=== PATIENT | female | born 1950 | race Caucasian/White ===

== ENCOUNTER 2017-07-08 08:59 | Inpatient (IN) | payer OTHER, MEDICARE ==
[~2017-07-08] VITALS: Ht 170.2 cm; Wt 81.6 kg
[~2017-07-08 08:59] MED LIST: ASPIR 8181 M1 PO; BENTYL20 MG PO; BUSPAR15 MG PO; CIPRO500 MG PO; FISH OIL 1,2001 EAC4 PO; FLAGYL500 MG PO; FLEXERIL10 MG PO; IBUPROFEN200 M1 PO; INDOCIN50 MG PO; KLONOPIN1 MG PO; KLONOPIN2 MG PO; LAMICTAL200 MG PO; LAMOTRIGINE200 MG PO; MOTRIN800 MG PO; MULTIPLE VITAM1 EACH PO; NAPROXEN500 MG PO; NORCO 5/3251 TABLET PO; PREDNISONE10 MG PO; PREDNISONE20 MG PO; REFRESH TEARS15 ML BOTH EYES; SEROQUEL100 MG PO; TOLTERODINE TART4 MG PO; TYLENOL WITH C1 EACH PO; ULTRAM50 MG PO; VITAMIN A10000 UNIT PO; VITAMIN D-32000 UNI1 PO; VITAMIN D2000 UNIT PO; WELLBUTRIN XL150 MG PO; ZOCOR40 MG PO
[2017-07-08 10:04] LABS: MCHC 32.5 G/DL (30.0-36.0); MCV 95.2 FL (83-99); MEAN PLAT.VOLUME 9.8 uM^3 (9.5-12.4); PLATELET COUNT 168 K/uL (156-360); RBC DIS.WIDTH-CV 11.5 % (11.8-14.6); RBC DIS.WIDTH-SD 39.8 % (39-53); RED BLOOD COUNT 3.78 M/uL (3.80-5.20)
[2017-07-08 10:14] LABS: CHLORIDE 112 mEq/L (99-109); SODIUM 143 mEq/L (136-147)
[2017-07-08 10:16] LABS: GLUCOSE 96 mg/dL (70-99)
[2017-07-08 10:18] LABS: ANION GAP 4 MEQ/L (2-14); TOTAL BILIRUBIN 0.4 mg/dL (0.0-1.0)
[2017-07-08 10:20] LABS: ALKALINE PHOSPHATASE 102 IU/L (3-129); GFR ESTIMATE (CALCULATED) > 59 mL/min/
[2017-07-08 10:21] LABS: UREA NITROGEN (BUN) 11 mg/dL (9-23)
[2017-07-08 10:24] LABS: LIPASE 17 U/L (1.0-51.0)
[2017-07-08 11:26] LABS: ADD MIUA? YES; BILIRUBIN NEGATIVE; BLOOD NEGATIVE; COLOR YELLOW ((YELLOW)); GLUCOSE (STRIP) NEGATIVE; KETONES NEGATIVE; LEUKOCYTES TRACE; NITRITE NEGATIVE; PROTEIN (STRIP) NEGATIVE; SPECIFIC GRAVITY 1.009 (1.000-1.030); UROBILINOGEN 0.2 MG/DL (0.2-1.0)
[2017-07-08 11:29] LABS: BACTERIA RARE /HPF; EPITHELIAL CELLS RARE /HPF; MUCUS TRACE /LPF; RED BLOOD CELLS 0-5 /HPF (0-5); UCUL ADDED? NO; WHITE BLOOD CELLS 0-5 /HPF (0-5)
[2017-07-08] MEDS ORDERED: LAMICTAL200 MG PO ×2 (14:13→22:01)
[2017-07-08] MEDS ORDERED: KLONOPIN1 MG PO (14:14)
[2017-07-08] MEDS ORDERED: SIMVASTATIN40 MG PO (14:14)
[2017-07-08] MEDS ORDERED: PANTOPRAZOLE SO40 MG PO (14:15)
[2017-07-08] MEDS ORDERED: DITROPAN PO (14:16)
[2017-07-08 17:24] VITALS: BP 155/79
[2017-07-08 20:00] VITALS: BP 119/62
[2017-07-08] MEDS ORDERED: PROTONIX40 MG PO (21:32)
[2017-07-08] MEDS ORDERED: OXYBUTYNIN CHLO10 MG PO (21:36)
[2017-07-08 23:52] VITALS: BP 124/58
[2017-07-09 04:04] VITALS: BP 114/55
[2017-07-09 07:48] VITALS: BP 128/77
[2017-07-09 10:54] VITALS: BP 149/76
[2017-07-09] MEDS ORDERED: CLONAZEPAM1 MG PO ×2 (16:01→16:02)
== END 2017-07-09 16:43 | disposition home or self-care (01) | DRG 93 ==
LOC: EME → EDBD 08:59 → EDOF 14:15 → ENRESERV 14:27 → 5SOUTH 16:51
PROVIDERS: Emergency Medicine
DX: R47.81 Slurred speech (principal); R47.1 Dysarthria and anarthria; T42.4X5A Adverse effect of benzodiazepines, initial encounter; M62.81 Muscle weakness (generalized); R42 Dizziness and giddiness; R68.2 Dry mouth, unspecified; R20.0 Anesthesia of skin; R29.6 Repeated falls; D32.9 Benign neoplasm of meninges, unspecified; N31.9 Neuromuscular dysfunction of bladder, unspecified; N32.81 Overactive bladder; F31.9 Bipolar disorder, unspecified; F41.1 Generalized anxiety disorder; M16.11 Unilateral primary osteoarthritis, right hip; Z86.73 Personal history of transient ischemic attack (TIA), and cerebral infarction without residual deficits
CPT/HCPCS: 70450; 70551; 80053; 81003; 83690; 85027; 93005; 99281; 99284; J7030

== ENCOUNTER 2018-02-08 17:58 | Emergency (ER) | payer OTHER ==
[~2018-02-08] VITALS: Ht 170.2 cm; Wt 80.3 kg
[~2018-02-08 17:58] MED LIST changes: +CLONAZEPAM1 MG PO; +DITROPAN PO; +OXYBUTYNIN CHLO10 MG PO; +PANTOPRAZOLE SO40 MG PO; +PROTONIX40 MG PO; +SIMVASTATIN40 MG PO
[2018-02-08 18:47] LABS: HEMATOCRIT 39.2 % (36.0-46.0); HEMOGLOBIN 13.2 G/DL (11.9-15.5); MCH 31.9 PG (29.0-34.0); MCHC 33.7 G/DL (30.0-36.0); MCV 94.7 FL (83-99); PLATELET COUNT 221 K/uL (156-360); RBC DIS.WIDTH-CV 11.4 % (11.8-14.6); RBC DIS.WIDTH-SD 39.6 % (39-53); RED BLOOD COUNT 4.14 M/uL (3.80-5.20); WHITE BLOOD COUNT 7.4 K/uL (4.1-10.2)
[2018-02-08 18:54] LABS: ALBUMIN 4.3 g/dL (3.2-4.8)
[2018-02-08 18:55] LABS: CHLORIDE 104 mEq/L (99-109); POTASSIUM 4.5 mEq/L (3.7-5.4); SODIUM 142 mEq/L (136-147)
[2018-02-08 18:57] LABS: GLUCOSE 81 mg/dL (70-99); TOTAL PROTEIN 6.7 g/dL (6.4-8.3)
[2018-02-08 18:59] LABS: TOTAL BILIRUBIN 0.4 mg/dL (0.0-1.0)
[2018-02-08 19:00] LABS: ALKALINE PHOSPHATASE 94 IU/L (3-129)
[2018-02-08 19:01] LABS: GFR ESTIMATE (CALCULATED) 59 mL/min/
[2018-02-08 19:02] LABS: AST (GOT) 22 IU/L (2-34); UREA NITROGEN (BUN) 14 mg/dL (9-23)
[2018-02-08 19:04] LABS: ALT (GPT) 15 IU/L (3-49)
[2018-02-08 19:17] LABS: APPEARANCE CLEAR ((CLEAR)); BILIRUBIN NEGATIVE; BLOOD NEGATIVE; COLOR YELLOW ((YELLOW)); GLUCOSE (STRIP) NEGATIVE; KETONES NEGATIVE; LEUKOCYTES MODERATE; NITRITE NEGATIVE; PROTEIN (STRIP) NEGATIVE; SPECIFIC GRAVITY 1.013 (1.000-1.030); UROBILINOGEN 0.2 MG/DL (0.2-1.0)
[2018-02-08 19:23] LABS: BACTERIA RARE /HPF; EPITHELIAL CELLS RARE /HPF; MUCUS TRACE /LPF; UCUL ADDED? YES; WHITE BLOOD CELLS TNTC /HPF (0-5)
[2018-02-08 20:00] LABS: LIPASE 12 U/L (1.0-51.0)
[2018-02-08] MEDS ORDERED: ZOFRAN ODT4 MG PO (21:32)
[2018-02-08 21:52] VITALS: BP 126/75
== END 2018-02-08 21:53 | disposition home or self-care (01) ==
LOC: EME 17:58
DX: R10.11 Right upper quadrant pain (principal); F32.9 Major depressive disorder, single episode, unspecified; F31.9 Bipolar disorder, unspecified; Z79.82 Long term (current) use of aspirin; Z90.710 Acquired absence of both cervix and uterus; Z90.49 Acquired absence of other specified parts of digestive tract; Z88.0 Allergy status to penicillin; Z91.013 Allergy to seafood
CPT/HCPCS: 76705; 80053; 81003; 83690; 85027; 87077; 87086; 87186; 99281; 99284